=== PATIENT | female | born 1980 | race Caucasian/White ===

== ENCOUNTER 2016-09-14 16:00 | Emergency (ER) | payer BC ==
[~2016-09-14] VITALS: Ht 172.7 cm; Wt 108.9 kg
[~2016-09-14 16:00] MED LIST: CLIN-44 PO; CYCL10TA2 PO
[2016-09-14] MEDS ORDERED: METHYLNALTREXONE 12 MG/0.6 ML VIAL. SQ ONE (16:30)
[2016-09-14] MEDS ORDERED: MAGNESIUM CITRATE 296 ML SOLUTION. PO ONE (16:30)
[2016-09-14] MEDS: BISACODYL 10 MG SUPP.RECT PR PRN ×2 (16:35→16:44)
[2016-09-14 16:46] VITALS: BP 135/81
[2016-09-14] MEDS ORDERED: PEG4000S8 PO (16:52)
--- NOTE | 2016-09-14 16:52 | PHYS DOC ---
Past Medical History Past Medical History: Depression, Sciatica, Other Additional Past Medical Histor: L4 L5 slipped discs Past Surgical History: Other Additional Past Surgical Histo: R FALLOPIAN TUBE REMOVED Alcohol Use: Occasionally Drug Use: None Adult General Chief Complaint Chief Complaint: CONTISPATION HPI HPI 36-year-old female who had a recent surgery and has been on Percocet now for a couple of weeks presents with constipation. She states she has been unable to have a bowel movement for the last 2 days. This point she is having a lot of cramping. She denies any melena or hematochezia. She denies any fever chills sweats nausea or vomiting. [] Review of Systems Review of Systems Constitutional: Denies fever or chills [] Eyes: Denies change in visual acuity, redness, or eye pain [] HENT: Denies nasal congestion or sore throat [] Respiratory: Denies cough or shortness of breath [] Cardiovascular: No additional information not addressed in HPI [] GI: Per history of present illness [] : Denies dysuria or hematuria [] Musculoskeletal: Denies back pain or joint pain [] Integument: Denies rash or skin lesions [] Neurologic: Denies headache, focal weakness or sensory changes [] Endocrine: Denies polyuria or polydipsia [] Current Medications Current Medications Current Medications Medications (Trade) Dose Ordered Sig/Alondra Start Time Stop Time Status Last Admin Dose Admin Bisacodyl (Dulcolax Supp) 10 mg PRN DAILY PRN 09/14/16 16:30 09/14/16 16:44 10 MG Magnesium Citrate (Citroma) 296 ml 1X ONCE 09/14/16 16:30 09/14/16 16:31 DC 09/14/16 16:38 296 ML Methylnaltrexone [place] (Relistor) 12 mg 1X ONCE 09/14/16 16:30 09/14/16 16:31 DC 09/14/16 16:36 12 MG Allergies Allergies Allergies Coded Allergies Type Severity Reaction Last Updated Verified Sulfa (Sulfonamide Antibiotics) Allergy Intermediate Nausea and Vomiting Yes Physical Exam Physical Exam Constitutional: Well developed, well nourished, no acute distress, non-toxic appearance. [] HENT: Normocephalic, atraumatic, bilateral external ears normal, oropharynx moist, no oral exudates, nose normal. [] Eyes: PERRLA, EOMI, conjunctiva normal, no discharge. [] Neck: Normal range of motion, no tenderness, supple, no stridor. [] Cardiovascular:Heart rate regular rhythm, no murmur [] Lungs & Thorax: Bilateral breath sounds clear to auscultation [] Abdomen: Bowel sounds normal, soft, no tenderness, no masses, no pulsatile masses. [] Skin: Warm, dry, no erythema, no rash. [] Back: No tenderness, no CVA tenderness. [] Extremities: No tenderness, no cyanosis, no clubbing, ROM intact, no edema. [] Neurologic: Alert and oriented X 3, normal motor function, normal sensory function, no focal deficits noted. [] Psychologic: Affect normal, judgement normal, mood normal. [] Current Patient Data Vital Signs Vital Signs Date Time Temp Pulse Resp B/P Pulse Ox O2 Delivery O2 Flow Rate FiO2 09/14/16 16:10 98.0 108 20 155/90 98 Room Air 98.0 EKG EKG [] Radiology/Procedures Radiology/Procedures [] Course & Med Decision Making Course & Med Decision Making Pertinent Labs and Imaging studies reviewed. (See chart for details) [ED course: Evaluation reveals a 36-year-old female with opiate-induced constipation. She was given Relistor and o'clock suppository during her stay in the emergency department. I recommend that she takes magnesium citrate at home. In agreement with this plan. Patient is stable for discharge home] Dragon Disclaimer Dragon Disclaimer This electronic medical record was generated, in whole or in part, using a voice recognition dictation system. Departure Departure Impression: Primary Impression: Constipation Disposition: 01 HOME, SELF-CARE Condition: STABLE Referrals: UNKNOWN PCP NAME (PCP) Patient Instructions: Constipation, Adult Additional Instructions: Take medication as directed. Follow with your family doctor this week if no improvement. Return to the emergency department with any new or concerning symptoms Scripts Peg 3350/Na Sulf,Bicarb,Cl/Kcl (Golytely Solution)4,000 Ml Soln.recon4,000 Ml PO 1X CONSTIPATION #1 Please take as directed Prov:LEONORA UMANA DO 09/14/16 Problem Qualifiers Primary Impression: Constipation Constipation type: slow transit constipation Qualified Code: K59.01 - Slow transit constipation LEONORA UMANA DO Sep 14, 2016 16:52
== END 2016-09-14 17:26 | disposition home or self-care (01) ==
LOC: ER 16:00
DX: K59.01 Slow transit constipation (principal); F32.9 Major depressive disorder, single episode, unspecified; Z88.2 Allergy status to sulfonamides
CPT/HCPCS: 96372; 99283; J2212